=== PATIENT | female | born 1945 | race Caucasian/White ===

== ENCOUNTER → 2017-09-03 | Outpatient (CLI) | payer MEDICARE ==
--- NOTE | 2017-09-03 08:15 | CT ---
EXAMINATION TYPE: CT chest wo con DATE OF EXAM: 09/03/2017 COMPARISON: NONE HISTORY: Solitary Pulmonary Nodule CT DLP: 408.[address] of the chest was performed with lung and mediastinal window settings submitted. The la ck of contrast limits evaluation of the vascular, mediastinal and parenchymal structures including th e upper abdomen. LUNGS: Calcified nodule right upper lobe compatible with calcified granuloma. Noncalcified 4 mm nodul e left lower lobe image 43. No suspicious nodule or mass. Subpleural fibrotic change within the right middle lobe and portions of the right upper lobe. No evidence for pleural effusion. MEDIASTINUM/HITESH: Moderate fixed hiatal hernia. Thoracic aorta is of normal caliber with limited williams luation given lack of contrast. The heart is enlarged. No evidence for mediastinal mass. No lymph nodes greater than 1cm. UPPER ABDOMEN: No significant abnormality is seen. OTHER: No significant other abnormality. IMPRESSION: 1. Nonspecific the left lower lobe pulmonary nodule. Follow-up in 12 months is advised. 2. Remote granulomatous disease. 3. Mild scattered subpleural fibrosis.
== END | disposition home or self-care (01) ==
LOC: RADCTMAIN 07:13
PROVIDERS: ATTEND Internal Medicine Sleep Medicine
DX: J84.10 Pulmonary fibrosis, unspecified (principal); R91.1 Solitary pulmonary nodule; Z87.09 Personal history of other diseases of the respiratory system
CPT/HCPCS: 71250

== ENCOUNTER → 2019-12-08 | Outpatient (CLI) | payer MEDICARE ==
--- NOTE | 2019-12-08 08:21 | CT ---
EXAMINATION TYPE: CT chest wo con DATE OF EXAM: 12/08/2019 COMPARISON: Chest CT February 24, 2018 and older study September 03, 2017. HISTORY: Lung nodule CT DLP: 581 mGycm. Automated Exposure Control for Dose Reduction was Utilized. TECHNIQUE: CT scan of the thorax is performed without IV contrast. FINDINGS: LUNGS: There is minimal biapical scarring redemonstrated. There is calcified 6 mm nodule or granuloma anterior right upper lobe redemonstrated on axial image 17. There is persistent mild moderate focal reticulation and peripheral fibrosis involving anterior right upper and mid lobes most prominent near diaphragm axial image 38 on current study redemonstrated. There is some linear scarring medially in the left lower lobe redemonstrated. No new groundglass opacity or consolidation is seen. Mild underly ing emphysematous change redemonstrated. No pleural effusion or pneumothorax is noted. There are 2-3 nodules measuring 4 mm or smaller in size left lower lobe axial image 38, subpleural ax ial image 43, and axial image 46 redemonstrated not significantly changed in size or appearance from prior CT. Slightly more prominent 4-5 mm scarlike opacity right lower lobe axial image 34 from prior studies. No new greater than 4 mm nodules or masses. MEDIASTINUM: Lack of IV contrast is noted to limit evaluation for mediastinal and especially hilar ad enopathy. There are no definitive new greater than 1 cm noncalcified hilar or mediastinal lymph nodes . Stable calcified subcentimeter paracarinal and right hilar lymph nodes. No cardiomegaly or perica rdial effusion is seen. Stable moderate-sized fixed hiatal hernia containing malrotated stomach with suspected surgical clips located near the diaphragmatic hiatus. OTHER: Cholecystectomy clips are redemonstrated. Surgical clips from right sided lumpectomy axial oc ge 24 redemonstrated. [id number] multilevel spurring of thoracic spine again seen with slight s coliotic curvature. IMPRESSION: Fairly stable findings. There is 4 to 5 mm scarlike opacity or spiculated nodule right lo wer lobe slightly more prominent from prior studies. Advise repeat CT in one year time to reassess.
== END | disposition home or self-care (01) ==
LOC: RADCTMAIN 07:03
PROVIDERS: ATTEND Internal Medicine Pulmonary Disease
DX: R91.8 Other nonspecific abnormal finding of lung field (principal); G47.33 Obstructive sleep apnea (adult) (pediatric); E03.9 Hypothyroidism, unspecified; K21.9 Gastro-esophageal reflux disease without esophagitis; Z88.2 Allergy status to sulfonamides; Z88.5 Allergy status to narcotic agent; Z88.8 Allergy status to other drugs, medicaments and biological substances
CPT/HCPCS: 71250

== ENCOUNTER → 2020-11-12 | Outpatient (CLI) | payer MEDICARE ==
--- NOTE | 2020-11-12 21:36 | CT ---
EXAMINATION TYPE: CT chest wo con DATE OF EXAM: 11/12/2020 COMPARISON: 12/08/2019, 02/24/2018 HISTORY: follow up lung nodules CT DLP: 444.7 mGycm, Automated exposure control for dose reduction was used. CONTRAST: Performed injected with 0 mL of Isovue 300. TECHNIQUE: Axial images were obtained at 5 mm thick sections. Reconstructed images are reviewed on [employer] computer in the coronal plane. FINDINGS: Portion of the thyroid visualized is normal. There is a calcified granuloma within the anterior right lung. Series 3 image 20. There is a 0.3 cm nodule in the anterior left midlung. Series 4 image 29. These were present on the 2 018 exam. 3 tiny nodules are slightly more inferior within the left midlung. These were not identified on the 2 018 exam. There is some streak opacity within the right lung base. Series 4 image 41 No enlarged mediastinal or hilar adenopathy is evident. The ascending aorta diameter at the level o f the main pulmonary artery is 3.7 cm. The main pulmonary artery diameter at the bifurcation is 2.7 cm. There are size hiatal hernia is present. Limited CT sections are obtained through the upper abdomen. Abdomen is essentially unremarkable. IMPRESSIONS: 1. Stable tiny nodules in the anterior left lower lung field unchanged from recent comparison.. Follo w-up exam in one year is recommended. 2. Examination is otherwise stable from prior examinations.
== END | disposition home or self-care (01) ==
LOC: RADCTMAIN 09:16
PROVIDERS: ATTEND Internal Medicine Pulmonary Disease
DX: R91.8 Other nonspecific abnormal finding of lung field (principal)
CPT/HCPCS: 71250

== ENCOUNTER → 2022-10-22 | Outpatient (CLI) | payer MEDICARE ==
--- NOTE | 2022-10-22 17:25 | CT ---
EXAMINATION TYPE: CT chest wo con DATE OF EXAM: 10/22/2022 COMPARISON: 11/12/2020 HISTORY: ASTHMA CT DLP: 512 mGycm, Automated exposure control for dose reduction was used. CONTRAST: Performed injected with 0 mL of Isovue 300. TECHNIQUE: Axial images were obtained at 5 mm thick sections. Reconstructed images are reviewed on [email or web address] computer in the coronal plane. FINDINGS: Portion of the thyroid visualized is normal. Mild infiltrate is at the right lateral lung base. This is nonspecific. It appears somewhat improved from comparison. There is a posterior lateral right lung nodule measuring 0.4 cm. This appears increased from comparis on. Series 3 image 34 There is stable appearing calcification anterior right midlung measuring 0.5 cm. Series 3 image 16 No enlarged mediastinal or hilar adenopathy is evident. The ascending aorta diameter at the level o f the main pulmonary artery is 3.5 cm. The main pulmonary artery diameter at the bifurcation is 2.4 cm. Some coronary artery calcification is present Limited CT sections are obtained through the upper abdomen. There is a moderate-sized hiatal hernia p resent. IMPRESSIONS: 1. New 0.4 cm nodule posterior lateral right lung. Follow-up exam in 6 months is recommended. 2. Improving infiltrate anterolateral right lung base.
== END | disposition home or self-care (01) ==
LOC: RADCTMAIN 09:13
PROVIDERS: ATTEND Internal Medicine Pulmonary Disease
DX: J45.909 Unspecified asthma, uncomplicated (principal); K44.9 Diaphragmatic hernia without obstruction or gangrene; G47.33 Obstructive sleep apnea (adult) (pediatric); R91.8 Other nonspecific abnormal finding of lung field; R74.8 Abnormal levels of other serum enzymes
CPT/HCPCS: 71250

== ENCOUNTER 2023-02-27 20:14 | Observation (INO) | payer MEDICARE ==
[2023-02-27] MEDS ORDERED: MORPHINE SULFATE 4 MG/ML SYRINGE IVP STA (20:31)
[2023-02-27 21:12] LABS: Basophils % (A) 0 %; Eosinophils % (A) 0 %; HCT 41.3 % (34.0-46.0); Lymphocytes # (A) 0.9 k/uL (1.0-4.8); Lymphocytes % (A) 8 %; MCH 29.4 pg (25.0-35.0); MCHC 33.8 g/dL (31.0-37.0); MCV 87.2 fL (80.0-100.0); Mean Platelet Volume 10.6; Monocytes # (A) 0.9 k/uL (0-1.0); Monocytes % (A) 8 %; Neutrophils # (A) 9.4 k/uL (1.3-7.7); Neutrophils % (A) 82 %; Platelet Count 269 k/uL (150-450); RBC 4.74 m/uL (3.80-5.40); RDW 12.9 % (11.5-15.5); WBC 11.5 k/uL (3.8-10.6)
[2023-02-27 21:35] LABS: ALT 24 U/L (4-34); AST 34 U/L (14-36); African American GFR (CKD) >90 (>60 ml/min/1.73 sqM); Alkaline Phosphatase 61 U/L (38-126); Anion Gap 9 mmol/L; Blood Urea Nitrogen 13 mg/dL (7-17); Calcium 9.5 mg/dL (8.4-10.2); Carbon Dioxide 31 mmol/L (22-30); Chloride 94 mmol/L (98-107); Glucose 116 mg/dL (74-99); Non-African American GFR(CKD) 89 (>60 ml/min/1.73 sqM); Potassium 3.2 mmol/L (3.5-5.1); Sodium 134 mmol/L (137-145); Total Bilirubin 1.1 mg/dL (0.2-1.3); Total Protein 7.1 g/dL (6.3-8.2)
--- NOTE | 2023-02-27 22:06 | CT ---
EXAMINATION TYPE: CT abdomen pelvis w con DATE OF EXAM: 02/27/2023 COMPARISON: NONE HISTORY: 77-year-old female left side abdominal pain TECHNIQUE: Contiguous axial scanning of the abdomen and pelvis following administration of 100 ml Iso uri 300 IV contrast. Delayed images through the kidneys and coronal/sagittal reconstructions perform ed. CT DLP: 1293.2 mGycm Automated exposure control for dose reduction was used. FINDINGS: Heart borderline in size. No pericardial effusion. Strandy atelectasis or scarring at the l stephanie bases. No pleural effusion. There is some surgical material at the GE junction but a moderate sized hiatal hernia involving a thi rd of the stomach in the lower chest. Liver mildly enlarged at 18.9 cm with a mildly diminished attenuation. Nonspecific 6 mm hypodensity mid liver is too small for accurate CT characterization, probably a tiny cyst. No biliary ductal dilatation. Portal venous system is patent. Cholecystectomy clips. Adrenal glands, kidneys, spleen, and pancreas show no gross abnormality. No dilated bowel, free fluid, or free air. No mesenteric or retroperitoneal lymphadenopathy. Appendix not clearly identified. No secondary findings of acute appendicitis in the right lower quadr ant. There is moderate stool in the right side of the abdomen. Lower descending and proximal to mid sigmoi d colonic diverticulosis. No pericolic inflammatory change seen. Bladder ureters urine distended. Most of the pelvis is obscured by dense streak and beam finding ash fact related to the patient's bilateral total hip arthroplasties. No obvious fluid collection in the pelvis or pelvic lymphadenopathy. Unable to adequately assess for uterus or ovaries. Suspected to be surgically absent. Bones: Osteitis pubis. Leftward truncal shift with degenerative disc disease particularly towards the left L5-S1 and hypertrophic facet arthropathy. Degenerative grade 1 anterolisthesis L4-L5. Suspected moderate spinal canal stenosis L3-L4 and L4-L5. IMPRESSION: 1. LEFT-SIDED COLONIC DIVERTICULOSIS WITHOUT ACUTE DIVERTICULITIS. 2. MILD HEPATOMEGALY AT 18.9 CM WITH AT LEAST MILD HEPATIC STEATOSIS. 3. WE NOTE SOME SURGICAL MATERIAL AT THE GE JUNCTION. HOWEVER, THERE IS A MODERATE-SIZED HIATAL HERNI A INVOLVING A THIRD OF THE STOMACH IN THE LOWER CHEST. CORRELATE TO THE REASON FOR PRIOR SURGERY A ND FOR ANY ACTIVE SYMPTOMS.
[2023-02-27 22:23] LABS: Creatine Kinase 111 U/L (30-135)
[2023-02-28] MEDS ORDERED: SODIUM CHLORIDE 0.9% 1,000 ML IV ONE ×2 (00:22→02:56)
[2023-02-28] MEDS ORDERED: KETOROLAC 15 MG/ML 1 ML VIAL IVP STA (00:55)
[2023-02-28] MEDS: LIDOCAINE 5% PATCH TOPICAL SCH ×2 (02:09→10:26)
[2023-02-28 03:26] LABS: Appearance,Urine Clear (Clear); Bilirubin,Urine Negative (Negative); Blood,Urine Trace (Negative); Color,Urine Yellow; Glucose,Urine (UA) Negative (Negative); Ketones,Urine Negative (Negative); Leukocyte Esterase,Urine Negative (Negative); Mucus,Urine Rare /hpf; Nitrite,Urine Negative (Negative); PH, Urine 6.5 (5.0-8.0); Protein,Urine Negative (Negative); RBC,Urine 12 /hpf (0-5); Specific Gravity,Urine 1.044 (1.001-1.035); Urobilinogen,Urine <2.0 mg/dL (<2.0); WBC,Urine 1 /hpf (0-5)
[2023-02-28] MEDS ORDERED: HYDROmorphone 1 MG/ML 1 ML SYRINGE IVP PRN (03:42)
--- NOTE | 2023-02-28 03:58 | ED ---
Back Pain HPI - General Chief Complaint: Back Pain/Injury Stated Complaint: Back Pain Time Seen by Provider: 02/27/23 20:23 Source: patient, EMS Limitations: no limitations - History of Present Illness Initial Comments: 77-year-old female presenting with chief complaint of back pain. Patient states that she is having pain along the entire left side of her back. No injury or trauma. Patient states that the 2 worst areas of pain are in the low back and in the neck. No loss of bowel or bladder control or saddle paresthesia. No radiation of the pain down the arms or up the legs. Patient was unable to ambulate today and states that she was on the floor for a few hours prior to arrival. Patient lives alone. No chest pain, difficulty breathing, vision or hearing changes, nausea, vomiting, numbness, tingling, weakness. - Related Data Home Medications Medication Instructions Recorded Confirmed Cetirizine HCl [Zyrtec] 10 mg PO DAILY PRN 11/09/14 02/28/23 Fenofibrate Nanocrystallized 145 mg PO DAILY 11/09/14 02/28/23 [Tricor] Levothyroxine Sodium [Synthroid] 150 mcg PO DIRECTED 11/09/14 02/28/23 amLODIPine/ATORVASTATIN 1 tab PO DAILY 11/09/14 02/28/23 [Amlodipine-Atorvast 5-10 mg] Gabapentin [Neurontin] 300 mg PO HS PRN 02/28/23 02/28/23 Lactulose 20 gm PO DAILY PRN 02/28/23 02/28/23 Lansoprazole 30 mg PO DAILY 02/28/23 02/28/23 Metoprolol/Hydrochlorothiazide 1 tab PO DAILY 02/28/23 02/28/23 [Lopressor Hct 50-25 mg Tab] Allergies Allergy/AdvReac Type Severity Reaction Status Date / Time codeine Allergy Swelling Verified 02/28/23 12:22 glycopyrrolate [From Robinul] Allergy Dyspnea Verified 02/28/23 12:22 metoclopramide HCl Allergy Dyspnea Verified 02/28/23 12:22 [From Reglan] pentazocine lactate Allergy Hallucinati Verified 02/28/23 12:22 [From Talwin] ons propoxyphene napsylate Allergy Swelling Verified 02/28/23 12:22 [From Darvocet-N 100] Sulfa (Sulfonamide Allergy Swelling Verified 02/28/23 12:22 Antibiotics) Review of Systems ROS Statement: Those systems with pertinent positive or pertinent negative responses have been documented in the HPI. ROS Other: All systems not noted in ROS Statement are negative. Past Medical History Past Medical History: GERD/Reflux, Hypertension, Sleep Apnea/CPAP/BIPAP Additional Past Medical History / Comment(s): USES CPA P,DIVERTICULOSIS/DIVERTICULITIS History of Any Multi-Drug Resistant Organisms: None Reported Past Surgical History: Appendectomy, Cholecystectomy, Hysterectomy, Joint Replacement Additional Past Surgical History / Comment(s): BSO, LUMP REMOVED FROM BREAST X2, RT KNEE REPLACEMTN,RT HIP REPLACEMENT Additional Past Anesthesia/Blood Transfusion Reaction / Comment(s): ALG REGLAN AND ROBINOL Past Psychological History: No Psychological Hx Reported Smoking Status: Never smoker Past Alcohol Use History: None Reported Past Drug Use History: None Reported - Past Family History Father Family Medical History: Congestive Heart Failure (CHF) Mother History Unknown: Yes Sister(s) Family Medical History: Cancer Additional Family Medical History / Comment(s): BREAST General Exam Limitations: no limitations General appearance: alert, in no apparent distress Head exam: Present: atraumatic, normocephalic, normal inspection Eye exam: Present: normal appearance, EOMI. Absent: periorbital swelling Neck exam: Present: normal inspection, tenderness, full ROM Respiratory exam: Present: normal lung sounds bilaterally. Absent: respiratory distress, wheezes, rales, rhonchi, stridor Cardiovascular Exam: Present: regular rate, normal rhythm, normal heart sounds. Absent: systolic murmur, diastolic murmur, rubs, gallop, clicks GI/Abdominal exam: Present: soft. Absent: distended, tenderness, guarding, rebound, rigid Back exam: Present: normal inspection Neurological exam: Present: alert, oriented X3 Psychiatric exam: Present: normal affect, normal mood Skin exam: Present: warm, dry, intact, normal color. Absent: rash Course Vital Signs 02/27/23 02/27/23 02/28/23 20:14 23:00 03:30 Temperature 99.0 F Pulse Rate 100 101 H 89 Respiratory 18 20 18 Rate Blood Pressure 140/93 154/70 119/59 O2 Sat by Pulse 97 95 93 L Oximetry Medical Decision Making - Medical Decision Making Was pt. sent in by a medical professional or institution (, PA, MAGNETIC LOCATER, urgent care, hospital, or senior living...) When possible be specific @ -No Did you speak to anyone other than the patient for history (EMS, parent, family, police, friend...)? What history was obtained from this source @ -No Did you review nursing and triage notes (agree or disagree)? Why? @ -I reviewed and agree with nursing and triage notes Were old charts reviewed (outside hosp., previous admission, EMS record, old EKG, old radiological studies, urgent care reports/EKG's, senior living records)? Report findings @ -No old charts were reviewed Differential Diagnosis (chest pain, altered mental status, abdominal pain women, abdominal pain men, vaginal bleeding, weakness, fever, dyspnea, syncope, headache, dizziness, GI bleed, back pain, seizure, CVA, palpatations, mental health, musculoskeletal)? @ - MDM Differential Back Pain: Strain, zoster, cauda equina syndrome, epidural abscess, vertebral osteomyelitis, discitis, fracture, subluxation, disc herniation, DJD, spinal stenosis, dissection, AAA, pancreatitis, peptic ulcer disease, pyelonephritis, kidney stone this is not meant to be an all-inclusive list. EKG interpreted by me (3pts min.). @ -As above X-rays interpreted by me (1pt min.). @ -None done CT interpreted by me (1pt min.). @ -No acute cervical spine fractures. Moderate degenerative disc disease and facet arthropathy throughout the cervical spine as described above. No significant spinal canal narrowing. Multilevel bilateral osseous foraminal narrowing most prominent at C6 through C7 Left sided colonic diverticulosis without acute diverticulitis. Mild hepatomegaly at 18.9 cm with at least mild hepatic steatosis. We note some surgical material at the GE junction. However there is a moderate sized hiatal hernia involving a third of the stomach in the lower chest. Isa as to the reason for prior surgery and for any active symptoms U/S interpreted by me (1pt. min.). @ -None done What testing was considered but not performed or refused? (CT, X-rays, U/S, labs)? Why? @ -None What meds were considered but not given or refused? Why? @ -None Did you discuss the management of the patient with other professionals (professionals i.e. , PA, MAGNETIC LOCATER, lab, RT, psych nurse, social worker health services, loss control manager, teacher, communications officer, manager case management)? Give summary @ -My attending spoke with the on-call [facility] provider who accepted admission Was smoking cessation discussed for >3mins.? @ -No Was critical care preformed (if so, how long)? @ -No Were there social determinants of health that impacted care today? How? (Homelessness, low income, unemployed, alcoholism, drug addiction, transportation, low edu. Level, literacy, decrease access to med. care, half-way, rehab)? @ -No Was there de-escalation of care discussed even if they declined (Discuss DNR or withdrawal of care, Hospice)? DNR status @ -No What co-morbidities impacted this encounter? (DM, HTN, Smoking, COPD, CAD, Cancer, CVA, ARF, Chemo, Hep., AIDS, mental health diagnosis, sleep apnea, morbid obesity)? @ -None Was patient admitted / discharged? Hospital course, mention meds given and route, prescriptions, significant lab abnormalities, going to OR and other pertinent info. @ -77-year-old female presenting with chief complaint of lower back and neck pain. Patient states the pain was so bad today that she was unable to ambulate and was lying on the floor for several hours before EMS came. Patient lives alone. History and physical exam were conducted. Negative CT of the abdomen and pelvis. Cervical spine CT shows no acute fracture or canal stenosis. After multiple methods of analgesia patient is still complaining of pain and states that she cannot function at her baseline. Given that the patient lives alone and concern for her safety if she is discharged. She'll be admitted for intrac table neck and lower back pain. Patient is agreeable with this plan. I discussed this case with my attending Dr. Fernandez Undiagnosed new problem with uncertain prognosis? @ -No Drug Therapy requiring intensive monitoring for toxicity (Heparin, Nitro, Insulin, Cardizem)? @ -No Were any procedures done? @ -No Diagnosis/symptom? @ -Intractable neck and back pain Acute, or Chronic, or Acute on Chronic? @ -Acute Uncomplicated (without systemic symptoms) or Complicated (systemic symptoms)? @ -Complicated Side effects of treatment? @ -No Exacerbation, Progression, or Severe Exacerbation? @ -No Poses a threat to life or bodily function? How? (Chest pain, USA, DC, pneumonia, PE, COPD, DKA, ARF, appy, cholecystitis, CVA, Diverticulitis, Homicidal, Suicidal, threat to staff... and all critical care pts) @ -No - Lab Data Result diagrams: 02/27/23 20:59 02/27/23 20:59 Lab Results 02/27/23 02/27/23 02/27/23 Range/Units 20:59 20:59 20:59 WBC 11.5 H (3.8-10.6) k/uL RBC 4.74 (3.80-5.40) m/uL Hgb 14.0 (11.4-16.0) gm/dL Hct 41.3 (34.0-46.0) % MCV 87.2 (80.0-100.0) fL MCH 29.4 (25.0-35.0) pg MCHC 33.8 (31.0-37.0) g/dL RDW 12.9 (11.5-15.5) % Plt Count 269 (150-450) k/uL MPV 10.6 Neutrophils % 82 % Lymphocytes % 8 % Monocytes % 8 % Eosinophils % 0 % Basophils % 0 % Neutrophils # 9.4 H (1.3-7.7) k/uL Lymphocytes # 0.9 L (1.0-4.8) k/uL Monocytes # 0.9 (0-1.0) k/uL Eosinophils # 0.0 (0-0.7) k/uL Basophils # 0.0 (0-0.2) k/uL Sodium 134 L (137-145) mmol/L Potassium 3.2 L (3.5-5.1) mmol/L Chloride 94 L (98-107) mmol/L Carbon Dioxide 31 H (22-30) mmol/L Anion Gap 9 mmol/L BUN 13 (7-17) mg/dL Creatinine 0.56 (0.52-1.04) mg/dL Est GFR (CKD-EPI)AfAm >90 (>60 ml/min/1.73 sqM) Est GFR (CKD-EPI)NonAf 89 (>60 ml/min/1.73 sqM) Glucose 116 H (74-99) mg/dL Plasma Lactic Acid Osvaldo 1.4 (0.7-2.0) mmol/L Calcium 9.5 (8.4-10.2) mg/dL Total Bilirubin 1.1 (0.2-1.3) mg/dL AST 34 (14-36) U/L ALT 24 (4-34) U/L Alkaline Phosphatase 61 (38-126) U/L Creatine Kinase 111 (30-135) U/L Total Protein 7.1 (6.3-8.2) g/dL Albumin 4.0 (3.5-5.0) g/dL Urine Color Urine Appearance (Clear) Urine pH (5.0-8.0) Ur Specific Crescent (1.001-1.035) Urine Protein (Negative) Urine Glucose (UA) (Negative) Urine Ketones (Negative) Urine Blood (Negative) Urine Nitrite (Negative) Urine Bilirubin (Negative) Urine Urobilinogen (<2.0) mg/dL Ur Leukocyte Esterase (Negative) Urine RBC (0-5) /hpf Urine WBC (0-5) /hpf Urine Mucus (None) /hpf 02/28/23 Range/Units 02:40 WBC (3.8-10.6) k/uL RBC (3.80-5.40) m/uL Hgb (11.4-16.0) gm/dL Hct (34.0-46.0) % MCV (80.0-100.0) fL MCH (25.0-35.0) pg MCHC (31.0-37.0) g/dL RDW (11.5-15.5) % Plt Count (150-450) k/uL MPV Neutrophils % % Lymphocytes % % Monocytes % % Eosinophils % % Basophils % % Neutrophils # (1.3-7.7) k/uL Lymphocytes # (1.0-4.8) k/uL Monocytes # (0-1.0) k/uL Eosinophils # (0-0.7) k/uL Basophils # (0-0.2) k/uL Sodium (137-145) mmol/L Potassium (3.5-5.1) mmol/L Chloride (98-107) mmol/L Carbon Dioxide (22-30) mmol/L Anion Gap mmol/L BUN (7-17) mg/dL Creatinine (0.52-1.04) mg/dL Est GFR (CKD-EPI)AfAm (>60 ml/min/1.73 sqM) Est GFR (CKD-EPI)NonAf (>60 ml/min/1.73 sqM) Glucose (74-99) mg/dL Plasma Lactic Acid Osvaldo (0.7-2.0) mmol/L Calcium (8.4-10.2) mg/dL Total Bilirubin (0.2-1.3) mg/dL AST (14-36) U/L ALT (4-34) U/L Alkaline Phosphatase (38-126) U/L Creatine Kinase (30-135) U/L Total Protein (6.3-8.2) g/dL Albumin (3.5-5.0) g/dL Urine Color Yellow Urine Appearance Clear (Clear) Urine pH 6.5 (5.0-8.0) Ur Specific Crescent 1.044 H (1.001-1.035) Urine Protein Negative (Negative) Urine Glucose (UA) Negative (Negative) Urine Ketones Negative (Negative) Urine Blood Trace H (Negative) Urine Nitrite Negative (Negative) Urine Bilirubin Negative (Negative) Urine Urobilinogen <2.0 (<2.0) mg/dL Ur Leukocyte Esterase Negative (Negative) Urine RBC 12 H (0-5) /hpf Urine WBC 1 (0-5) /hpf Urine Mucus Rare H (None) /hpf Disposition Clinical Impression: Neck pain Disposition: ADMITTED IP TO THIS HOSP Condition: Good Time of Disposition: 04:25
[2023-02-28] MEDS ORDERED: HYDROcodone/APAP 5-325MG 1 EACH TAB PO PRN (04:23)
[2023-02-28] MEDS ORDERED: NALOXONE 0.4 MG/ML 1 ML VIAL IV PRN (04:23)
[2023-02-28] MEDS ORDERED: ACETAMINOPHEN TAB 325 MG TAB PO PRN (04:23)
[2023-02-28] MEDS ORDERED: MORPHINE SULFATE 4 MG/ML SYRINGE IVP PRN (04:44)
[2023-02-28] MEDS: SODIUM CHLORIDE 0.9% 1,000 ML IV SCH ×2 (04:46→18:03)
--- NOTE | 2023-02-28 06:24 | CT ---
EXAM: CT Cervical Spine Without Intravenous Contrast CLINICAL HISTORY: ITS.REASON CT Reason: neck pain TECHNIQUE: Axial computed tomography images of the cervical spine without intravenous contrast. CTDI is 16.3 mGy and DLP is 411.1 mGy-cm. This CT exam was performed using one or more of the following dose reduction techniques: automated exposure control, adjustment of the mA and/or kV according to patient size, and/or use of iterative reconstruction technique. COMPARISON: No relevant prior studies available. FINDINGS: Vertebrae: Straightening of cervical lordosis which may be positional. Minimal anterolisthesis of C4 on C5 and C5 on C6 with grade 1 anterolisthesis of C7 on T1. No acute fracture. Advanced facet arthropathy throughout the upper cervical spine from C3-C4 through C5-C6 on the left. Discs/spinal canal/neural foramina: No acute findings. No spinal canal stenosis. Moderate disc space narrowing, endplate sclerosis, and disc osteophyte complexes throughout the lower cervical spine most prominent at C5-C6. No significant spinal canal narrowing. Multilevel bilateral osseous foraminal narrowing most prominent at C6-7. Soft tissues: Unremarkable. IMPRESSION: 1. No acute cervical spine fractures. 2. Moderate degenerative disc disease and facet arthropathy throughout the cervical spine as described above. No significant spinal canal narrowing. Multilevel bilateral osseous foraminal narrowing most prominent at C6-C7.
[2023-02-28] MEDS ORDERED: KETOROLAC 15 MG/ML 1 ML VIAL IVP PRN (09:41)
[2023-02-28] MEDS ORDERED: ONDANSETRON 4 MG/2 ML VIAL IVP PRN (09:41)
[2023-02-28] MEDS: POTASSIUM CHLORIDE 10 MEQ in WATER FOR INJECTION 1 100ML.BAG IVPB SCH ×2 (10:22→12:50)
[2023-02-28] MEDS: traMADol 50 MG TAB PO PRN ×2 (10:32→18:02)
--- NOTE | 2023-02-28 11:59 | P.CNOR ---
History of Present Illness - [facility] Consult date: 02/28/23 Consult reason: neck pain History of present illness: Patient is a 77-year-old female who presented to [facility] yesterday with regards to low back pain and neck pain. Patient states that she woke up with the pain and had a very difficult time with ambulation, due to severe pain should come to the hospital for further evaluation. Patient was admitted to the hospital under internal medicine due to intractable pain. Our orthopedic team was consulted. Patient had undergone a computed tomography scan of the cervical spine in the emergency room, there are no acute fractures or dislocations noted. At bedside today, she is resting comfortably. She's feels that the pain is a little bit better today, she still notes most the pain on the left side of her back ranges up into her neck. She denies any radiating pain to the extremities both bilateral upper and lower at this time. She denies any recent trauma. She does have a history of previous lumbar fusion was done many years ago at a different hospital. Currently patient denies any numbness or tingling or obvious weakness to the masha ateral upper and lower extremities. She does have a history of right total knee arthroplasty which states has been giving her problems lately. She denies any fevers or chills at this time. She denies being sick recently. She denies any numbness or tingling to the peroneal or genital region. She denies any loss of bowel or bladder function at this time. Patient normally utilizes no assist dev ices with ambulation. Review of Systems Constitutional: Reports as per HPI Past Medical History Past Medical History: GERD/Reflux, Hypertension, Sleep Apnea/CPAP/BIPAP Additional Past Medical History / Comment(s): USES CPAP,DIVERTICULOSIS/DIVERTICULITIS History of Any Multi-Drug Resistant Organisms: None Reported Past Surgical History: Appendectomy, Cholecystectomy, Hysterectomy, Joint Replacement Additional Past Surgical History / Comment(s): BSO, LUMP REMOVED FROM BREAST X2, RT KNEE REPLACEMTN,bilteral HIP REPLACEMENT, ankle surgery, Additional Past Anesthesia/Blood Transfusion Reaction / Comm: JAMES HDZ AND CHRISTOPHER Past Psychological History: No Psychological Hx Reported Smoking Status: Never smoker Past Alcohol Use History: None Reported Past Drug Use History: None Reported - Past Family History Father Family Medical History: Congestive Heart Failure (CHF) Mother History Unknown: Yes Sister(s) Family Medical History: Cancer Additional Family Medical History / Comment(s): BREAST Medications and Allergies Home Medications Medication Instructions Recorded Confirmed Type Biotin 10 mg PO DAILY 11/09/14 11/15/14 History Cetirizine HCl [Zyrtec] 10 mg PO DAILY PRN 11/09/14 11/15/14 History Cholecalciferol [Vitamin D3] 5,000 units PO DAILY 11/09/14 11/15/14 History Fenofibrate Nanocrystallized 145 mg PO DAILY 11/09/14 11/15/14 History [Tricor] Lansoprazole [Prevacid] 15 mg PO DAILY 11/09/14 11/15/14 History Levothyroxine Sodium [Synthroid] 150 mcg PO QAM 11/09/14 11/15/14 History Magnesium 400 mg PO DAILY 11/09/14 11/15/14 History Metoprolol Tartrate 12.5 mg PO BID 11/09/14 11/15/14 History Multivit-Min/FA/Lycopene/Lut 1 each PO DAILY 11/09/14 11/15/14 History [Centrum Silver Tablet] Ubidecarenone [Co Q-10] 400 mg PO DAILY 11/09/14 11/15/14 History Vitamin B Complex 1 each PO DAILY 11/09/14 11/15/14 History amLODIPine/ATORVASTATIN 1 each PO DAILY 11/09/14 11/15/14 History [Amlodipine-Atorvast 5-10 mg] Allergies Allergy/AdvReac Type Severity Reaction Status Date / Time acetaminophen Allergy Swelling Verified 02/27/23 20:19 [From Darvocet-N 100] codeine Allergy Swelling Verified 02/27/23 20:19 glycopyrrolate [From Robinul] Allergy Dyspnea Verified 02/27/23 20:19 metoclopramide HCl Allergy Dyspnea Verified 02/27/23 20:19 [From Reglan] pentazocine lactate Allergy Hallucinati Verified 02/27/23 20:19 [From Talwin] ons propoxyphene napsylate Allergy Swelling Verified 02/27/23 20:19 [From Darvocet-N 100] Sulfa (Sulfonamide Allergy Swelling Verified 02/27/23 20:19 Antibiotics) Physical Examination Gen: AOx3, NAD VSS stable at this time Integument: No open lesions are visualized throughout the cervical, thoracic or lumbar spine. Well-healed incision over the anterior aspect of the right knee Palpation: Mild tenderness with palpation noted in the paraspinal region of the cervical and upper thoracic spine. No point tenderness appreciated with palpation to the bilateral upper and lower extremities ROM: Full range of motion in all major muscle groups of the bilateral upper and lower extremity is, no focal deficits appreciated Sensory Exam: Senory exam to light touch is intact C5-T1 Senosry exam to light touch is intact L2-S1 Motor: 5/5 strength appreciated in bilateral upper extremities with shoulder elevation, shoulder abduction, wrist extension, wrist flexion, elbow extension, elbow flexion, mounter brass wind instruments 5/5 strength appreciated in the bilateral lower extremities with hip flexion, knee extension, knee flexion, plantar flexion, dorsiflexion, EHL, FHL Reflexes: 2/4 in all UE and LE Negative Stefanie's bilaterally Negative Babinski bilateral Negative clonus bilaterally Special Test: Negative straight leg raise bilaterally Results - Labs Labs: Abnormal Lab Results - Last 24 Hours (Table) 02/27/23 02/27/23 02/28/23 Range/Units 20:59 20:59 02:40 WBC 11.5 H (3.8-10.6) k/uL Neutrophils # 9.4 H (1.3-7.7) k/uL Lymphocytes # 0.9 L (1.0-4.8) k/uL Sodium 134 L (137-145) mmol/L Potassium 3.2 L (3.5-5.1) mmol/L Chloride 94 L (98-107) mmol/L Carbon Dioxide 31 H (22-30) mmol/L Glucose 116 H (74-99) mg/dL Ur Specific [place] 1.044 H (1.001-1.035) Urine Blood Trace H (Negative) Urine RBC 12 H (0-5) /hpf Urine Mucus Rare H (None) /hpf H & H 02/27/23 Range/Units 20:59 Hgb 14.0 (11.4-16.0) gm/dL Hct 41.3 (34.0-46.0) % Result Diagrams: 02/27/23 20:59 02/27/23 20:59 - Diagnostic results CT scan - cervical: report reviewed, image reviewed (Images and reports reviewed with Dr. Ruiz. Patient has no acute fractures or dislocations. Multilevel cervical spondylosis with likely varying degrees of neural foraminal and central canal stenosis.) Assessment and Plan Assessment: Neck pain Low-back pain Multilevel cervical spondylosis with varying degrees of neural foraminal and c entral canal stenosis Previous lumbar fusion Other medical comorbidities Plan: I was able to discuss the case, this including both physical exam findings and imaging studies my attending Dr. Ruiz. No emergent orthopedic surgical intervention is recommended at this time Would recommend initial conservative measures, this including use of Tylenol, NSAIDs, possible low-dose muscle relaxer. Pending how she reacts to initial conservative measures, could consider MRI of the cervical spine if symptoms don't improve PT/OT, weight-bear as tolerated DVT prophylaxis per primary medical service Encourage patient to be out of bed for all meals Other medical staff assistant recommendations appreciated We will continue to follow patient during hospital stay Time with Patient: Less than 30
[2023-02-28] MEDS: methocarbamoL 500 MG TAB PO SCH ×4 (12:50→20:55)
--- NOTE | 2023-02-28 12:52 | P.HPIM ---
History of Present Illness H&P Date: 02/28/23 Chief Complaint: Back pain * 77-year-old lady with past medical history significant for hypertension, hyperlipidemia, gastric physical reflux disease presented to the emergency department with complains of back pain patient states her symptom onset was early in the day when she started having low back pain, patient states she was unable to ambulate secondary to pain/patient denies losing loss of bladder or bowel control/denies radiation of pain down the legs or radiation down the arms * Patient denies associated symptoms of fever, chills, chest pain, shortness of breath nausea vomiting tingling or numbness. * Workup initiated in ER including CT abdomen and pelvis which showed colon diverticulosis without diverticulitis/hepatomegaly noted/bone windows showed degenerative disease of lumbar spine moderate spinal canal stenosis * CT cervical spine obtained was consistent with degenerative disease of cervical spine no acute cervical spine fracture noted * Blood work obtained in ER included CBC showed WBC 11.5 hemoglobin 14 platelet 269 * Serum chemistry showed sodium 134 potassium 3.2 BU and 13 creatinine 0.56 * Urinalysis showed minimal WBC, nitrite and leukocyte esterase negative * While in ER patient was given 2 L of fluid bolus, IV Toradol and IV morphine and admitted for further management REVIEW OF SYSTEMS: Back pain, bilateral lower extremity weakness CONSTITUTIONAL: No fever, no malaise, no fatigue. HEENT: No recent visual problems or hearing problems. Denied any sore throat. CARDIOVASCULAR: No chest pain, orthopnea, PND, no palpitations, no syncope. PULMONARY: No shortness of breath, no cough, no hemoptysis. GASTROINTESTINAL: No diarrhea, no nausea, no vomiting, no abdominal pain. NEUROLOGICAL: No headaches, no weakness, no numbness. HEMATOLOGICAL: Denies any bleeding or petechiae. GENITOURINARY: Denies any burning micturition, frequency, or urgency. MUSCULOSKELETAL/RHEUMATOLOGICAL: Denies any joint pain, swelling, or any muscle pain. ENDOCRINE: Denies any polyuria or polydipsia. PHYSICAL EXAMINATION: GENERAL: The patient is alert and oriented x 3, not in any acute distress. Well developed, well nourished. HEENT: Pupils are round and equally reacting to light. EOMI. PULMONARY: Chest is clear to auscultation, no wheezing or crackles. ABDOMEN: Soft, nontender, nondistended, normoactive bowel sounds. No palpable organomegaly. MUSCULOSKELETAL: No joint swelling or deformity. EXTREMITIES: No cyanosis, clubbing, or pedal edema. NEUROLOGICAL: Gross neurological examination did not reveal any focal deficits. Generalized global weakness Past Medical History Past Medical History: GERD/Reflux, Hypertension, Sleep Apnea/CPAP/BIPAP Additional Past Medical History / Comment(s): USES C PAP,DIVERTICULOSIS/DIVERTICULITIS History of Any Multi-Drug Resistant Organisms: None Reported Past Surgical History: Appendectomy, Cholecystectomy, Hysterectomy, Joint Replacement Additional Past Surgical History / Comment(s): BSO, LUMP REMOVED FROM BREAST X2, RT KNEE REPLACEMTN,bilteral HIP REPLACEMENT, ankle surgery, Additional Past Anesthesia/Blood Transfusion Reaction / Comment(s): ALG REGLAN AND ROBINOL Past Psychological History: No Psychological Hx Reported Smoking Status: Never smoker Past Alcohol Use History: None Reported Past Drug Use History: None Reported - Past Family History Father Family Medical History: Congestive Heart Failure (CHF) Mother History Unknown: Yes Sister(s) Family Medical History: Cancer Additional Family Medical History / Comment(s): BREAST Medications and Allergies Home Medications Medication Instructions Recorded Confirmed Type Cetirizine HCl [Zyrtec] 10 mg PO DAILY PRN 11/09/14 02/28/23 History Fenofibrate Nanocrystallized 145 mg PO DAILY 11/09/14 02/28/23 History [Tricor] Levothyroxine Sodium [Synthroid] 150 mcg PO DIRECTED 11/09/14 02/28/23 History amLODIPine/ATORVASTATIN 1 tab PO DAILY 11/09/14 02/28/23 History [Amlodipine-Atorvast 5-10 mg] Gabapentin [Neurontin] 300 mg PO HS PRN 02/28/23 02/28/23 History Lactulose 20 gm PO DAILY PRN 02/28/23 02/28/23 History Lansoprazole 30 mg PO DAILY 02/28/23 02/28/23 History Metoprolol/Hydrochlorothiazide 1 tab PO DAILY 02/28/23 02/28/23 History [Lopressor Hct 50-25 mg Tab] Allergies Allergy/AdvReac Type Severity Reaction Status Date / Time codeine Allergy Swelling Verified 02/28/23 12:22 glycopyrrolate [From Robinul] Allergy Dyspnea Verified 02/28/23 12:22 metoclopramide HCl Allergy Dyspnea Verified 02/28/23 12:22 [From Reglan] pentazocine lactate Allergy Hallucinati Verified 02/28/23 12:22 [From Talwin] ons propoxyphene napsylate Allergy Swelling Verified 02/28/23 12:22 [From Darvocet-N 100] Sulfa (Sulfonamide Allergy Swelling Verified 02/28/23 12:22 Antibiotics) Physical Exam Vitals: Vital Signs Temp Pulse Pulse Resp BP BP Pulse Ox 02/28/23 08:00 15 02/28/23 06:08 97.9 F 80 15 171/72 94 L 02/28/23 03:30 89 18 119/59 93 L 02/27/23 23:00 101 H 20 154/70 95 02/27/23 20:14 99.0 F 100 18 140/93 97 Intake and Output 02/27/23 02/28/23 02/28/23 22:59 06:59 14:59 Output Total 760 Balance -760 Output: Urine 760 Straight 760 Other: Weight 90.718 kg 90.718 kg Results CBC & Chem 7: 02/27/23 20:59 02/27/23 20:59 Labs: Abnormal Lab Results - Last 24 Hours (Table) 02/27/23 02/27/23 02/28/23 Range/Units 20:59 20:59 02:40 WBC 11.5 H (3.8-10.6) k/uL Neutrophils # 9.4 H (1.3-7.7) k/uL Lymphocytes # 0.9 L (1.0-4.8) k/uL Sodium 134 L (137-145) mmol/L Potassium 3.2 L (3.5-5.1) mmol/L Chloride 94 L (98-107) mmol/L Carbon Dioxide 31 H (22-30) mmol/L Glucose 116 H (74-99) mg/dL Ur Specific [place] 1.044 H (1.001-1.035) Urine Blood Trace H (Negative) Urine RBC 12 H (0-5) /hpf Urine Mucus Rare H (None) /hpf Assessment and Plan Assessment: Assessment and plan 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
[2023-03-01] MEDS: traMADol 50 MG TAB PO PRN ×2 (00:31→08:17)
[2023-03-01] MEDS: SODIUM CHLORIDE 0.9% 1,000 ML IV SCH ×2 (06:15→18:11)
[2023-03-01] MEDS: ENOXAPARIN 40 MG/0.4 ML SYRINGE SQ SCH (08:17)
[2023-03-01] MEDS: methocarbamoL 500 MG TAB PO SCH ×4 (08:17→21:38)
[2023-03-01 08:42] LABS: Basophils # (A) 0.04 X 10*3/uL (0.00-0.10); Basophils % (A) 0.5 %; Eosinophils # (A) 0.18 X 10*3/uL (0.04-0.35); Eosinophils % (A) 2.5 %; HCT 35.9 % (37.2-46.3); HGB 11.7 g/dL (12.0-15.0); Lymphocytes # (A) 1.16 X 10*3/uL (0.90-5.00); Lymphocytes % (A) 15.8 %; MCH 28.7 pg (27.0-32.0); MCHC 32.6 g/dL (32.0-37.0); Mean Platelet Volume 12.3 FL (9.5-12.2); Monocytes # (A) 0.88 X 10*3/uL (0.20-1.00); NRBC Per 100 WBC 0 X 10*3/uL (0.00-0.01); Neutrophils # (A) 5.03 X 10*3/uL (1.80-7.70); Neutrophils % (A) 68.8 %; Platelet Count 256 X 10*3/uL (140-440); RBC 4.08 X 10*6/uL (4.10-5.20); RDW 12.7 % (11.5-14.5); WBC 7.32 X 10*3/uL (4.50-10.00)
[2023-03-01 08:54] LABS: Blood Urea Nitrogen 10.8 mg/dL (9.0-27.0); Calcium 8.9 mg/dL (8.7-10.3); Carbon Dioxide 27.4 mmol/L (21.6-31.8); Chloride 98 mmol/L (96-109); Glucose 99 mg/dL (70-110); Potassium 3.6 mmol/L (3.5-5.5); Sodium 134 mmol/L (135-145)
--- NOTE | 2023-03-01 10:27 | P.PN ---
Subjective Progress Note Date: 03/01/23 Principal diagnosis: Low back pain, neck pain Patient was examined today at bedside, she was resting in her hospital bed. Patient states that the pain does seem a little bit better today. She has tramadol and Robaxin. Patient was assisted to the side of the bed, she did this with very minimal difficulty. She does note some paraspinal tenderness cervical region, she also notes more left-sided flank pain. She continues to demonstrate no acute neuropathic signs. She denies headaches, lightheadedness, chest pain or shortness of breath Objective - Vital Signs Vital signs: Vital Signs Temp 98.3 F 03/01/23 07:00 Pulse 65 03/01/23 07:00 Resp 15 03/01/23 07:00 BP 126/65 03/01/23 07:00 Pulse Ox 99 03/01/23 07:00 FiO2 Intake & Output 02/28/23 03/01/23 03/01/23 18:59 06:59 18:59 Intake Total 564 Output Total 300 Balance 264 Intake: Oral 564 Output: Urine 300 Other: Voiding Method Toilet Toilet # Voids 150 5 - Exam Gen: AOx3, NAD VSS stable at this time Integument: No open lesions are visualized throughout the cervical, thoracic or lumbar spine. Well-healed incision over the anterior aspect of the right knee Palpation: Mild tenderness with palpation noted in the paraspinal region of the cervical and upper thoracic spine. No point tenderness appreciated with palpation to the bilateral upper and lower extremities ROM: Full range of motion in all major muscle groups of the bilateral upper and lower extremity is, no focal deficits appreciated Sensory Exam: Senory exam to light touch is intact C5-T1 Senosry exam to light touch is intact L2-S1 Motor: 5/5 strength appreciated in bilateral upper extremities with shoulder elevation, shoulder abduction, wrist extension, wrist flexion, elbow extension, elbow flexion, volunteer recruitment coordinator 5/5 strength appreciated in the bilateral lower extremities with hip flexion, knee extension, knee flexion, plantar flexion, dorsiflexion, EHL, FHL Reflexes: 2/4 in all UE and LE Negative Stefanie's bilaterally Negative Babinski bilateral Negative clonus bilaterally Special Test: Negative straight leg raise bilaterally - Labs CBC & Chem 7: 03/01/23 06:00 03/01/23 06:00 Labs: Abnormal Lab Results - Last 24 Hours (Table) 02/28/23 03/01/23 03/01/23 Range/Units 11:30 06:00 06:00 RBC 4.08 L (4.10-5.20) X 10*6/uL Hgb 11.7 L (12.0-15.0) g/dL Hct 35.9 L (37.2-46.3) % MPV 12.3 H (9.5-12.2) FL Sodium 134 L (135-145) mmol/L Creatine Kinase 261 H (30-135) U/L Assessment and Plan Assessment: Neck pain Low-back pain Multilevel cervical spondylosis with varying degrees of neural foraminal and central canal stenosis Previous lumbar fusion Other medical comorbidities Plan: Patient seems to be improving with current medical regimen of tramadol and mu scle relaxer. Recommend continuing conservative measures at this time PT/OT, weight-bear as tolerated DVT prophylaxis per primary medical service Encourage patient to be out of bed for all meals Other director medical writing recommendations appreciated Orthopedically patient remained stable, would recommend follow-up in the outpatient setting with Dr. Ruiz in the near future. Follow-up in formation will be placed in chart. Please contact our orthopedic service there are any further questions Time with Patient: Less than 30
[2023-03-01] MEDS ORDERED: DOCUSATE 100 MG CAP PO PRN (10:29)
[2023-03-01] MEDS ORDERED: LORATADINE 10 MG TAB PO PRN (13:19)
[2023-03-01] MEDS ORDERED: GABAPENTIN 300 MG CAP PO PRN (13:19)
--- NOTE | 2023-03-01 13:20 | P.PN ---
Subjective Progress Note Date: 03/01/23 * 77-year-old lady with past medical history significant for hypertension, hyperlipidemia, gastric physical reflux disease presented to the emergency department with complains of back pain patient states her symptom onset was early in the day when she started having low back pain, patient states she was unable to ambulate secondary to pain/patient denies losing loss of bladder or bowel control/denies radiation of pain down the legs or radiation down the arms * Patient denies associated symptoms of fever, chills, chest pain, shortness of breath nausea vomiting tingling or numbness. * Workup initiated in ER including CT abdomen and pelvis which showed colon diverticulosis without diverticulitis/hepatomegaly noted/bone windows showed degenerative disease of lumbar spine moderate spinal canal stenosis * CT cervical spine obtained was consistent with degenerative disease of cervical spine no acute cervical spine fracture noted * Blood work obtained in ER included CBC showed WBC 11.5 hemoglobin 14 platelet 269 * Serum chemistry showed sodium 134 potassium 3.2 BU and 13 creatinine 0.56 * Urinalysis showed minimal WBC, nitrite and leukocyte esterase negative * While in ER patient was given 2 L of fluid bolus, IV Toradol and IV morphine and admitted for further management * 03/01/2023: Patient seen and evaluated bedside, patient came back pain has improved patient able to ambulate with a walker motor strength is symmetrical and adequate, MRI cervical and lumbar spine ordered and pending REVIEW OF SYSTEMS: Back pain, bilateral lower extremity weakness CONSTITUTIONAL: No fever, no malaise, no fatigue. HEENT: No recent visual problems or hearing problems. Denied any sore throat. CARDIOVASCULAR: No chest pain, orthopnea, PND, no palpitations, no syncope. PULMONARY: No shortness of breath, no cough, no hemoptysis. GASTROINTESTINAL: No diarrhea, no nausea, no vomiting, no abdominal pain. NEUROLOGICAL: No headaches, no weakness, no numbness. HEMATOLOGICAL: Denies any bleeding or petechiae. GENITOURINARY: Denies any burning micturition, frequency, or urgency. MUSCULOSKELETAL/RHEUMATOLOGICAL: Denies any joint pain, swelling, or any muscle pain. ENDOCRINE: Denies any polyuria or polydipsia. PHYSICAL EXAMINATION: See vitals below GENERAL: The patient is alert and oriented x 3, not in any acute distress. Well developed, well nourished. HEENT: Pupils are round and equally reacting to light. EOMI. PULMONARY: Chest is clear to auscultation, no wheezing or crackles. ABDOMEN: Soft, nontender, nondistended, normoactive bowel sounds. No palpable organomegaly. MUSCULOSKELETAL: No joint swelling or deformity. EXTREMITIES: No cyanosis, clubbing, or pedal edema. NEUROLOGICAL: Gross neurological examination did not reveal any focal deficits. Strength is 4 x 5 bilateral upper and lower extremity Generalized global we akness Objective - Vital Signs Vital signs: Vital Signs Temp 98.3 F 03/01/23 07:00 Pulse 65 03/01/23 07:00 Resp 15 03/01/23 07:00 BP 126/65 03/01/23 07:00 Pulse Ox 99 03/01/23 07:00 FiO2 Intake & Output 02/28/23 03/01/23 03/01/23 18:59 06:59 18:59 Intake Total 564 Output Total 300 Balance 264 Intake: Oral 564 Output: Urine 300 Other: Voiding Method Toilet Toilet # Voids 150 5 - Labs CBC & Chem 7: 03/01/23 06:00 03/01/23 06:00 Labs: Abnormal Lab Results - Last 24 Hours (Table) 03/01/23 03/01/23 Range/Units 06:00 06:00 RBC 4.08 L (4.10-5.20) X 10*6/uL Hgb 11.7 L (12.0-15.0) g/dL Hct 35.9 L (37.2-46.3) % MPV 12.3 H (9.5-12.2) FL Sodium 134 L (135-145) mmol/L Assessment and Plan Assessment: Assessment and plan 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 with acute back pain Electrolyte Abnormality hyponatremia/hypokalemia Hypertension Hypothyroid Dyslipidemia Gastroesophageal reflux disease * In regards to degenerative disease of spine/back pain MRI cervical and lumbar spine ordered >> appreciate input from orthospine * In regards to hyponatremia, continue to monitor sodium levels potassium replaced * In regards to hypertension, continue metoprolol and hydrochlorothiazide, monitor for hypotension * In regards to hypothyroid continue Synthyroid * Physical therapy occupational therapy consulted * CODE STATUS is full code Time with Patient: Less than 30
[2023-03-01] MEDS: PANTOPRAZOLE 40 MG TABLET PO SCH (13:51)
[2023-03-01] MEDS: LIDOCAINE 5% PATCH TOPICAL SCH ×2 (14:57→15:07)
[2023-03-01] MEDS: hydroCHLOROthiazide 25 MG TAB PO SCH (14:58)
[2023-03-01] MEDS: FENOFIBRATE 160 MG TAB PO SCH (14:59)
[2023-03-01] MEDS: METOPROLOL TARTRATE 50 MG TAB PO SCH (14:59)
[2023-03-01] MEDS: amLODIPine 5 MG TAB PO SCH (14:59)
[2023-03-02] MEDS: LEVOTHYROXINE 75 MCG TAB PO SCH (06:42)
[2023-03-02] MEDS: traMADol 50 MG TAB PO PRN (06:47)
[2023-03-02] MEDS: METOPROLOL TARTRATE 50 MG TAB PO SCH (08:37)
[2023-03-02] MEDS: methocarbamoL 500 MG TAB PO SCH ×3 (08:37→20:00)
[2023-03-02] MEDS: ATORVASTATIN 10 MG TAB PO SCH (08:37)
[2023-03-02] MEDS: PANTOPRAZOLE 40 MG TABLET PO SCH (08:37)
[2023-03-02] MEDS: FENOFIBRATE 160 MG TAB PO SCH (08:37)
[2023-03-02] MEDS: amLODIPine 5 MG TAB PO SCH (08:37)
[2023-03-02] MEDS: LIDOCAINE 5% PATCH TOPICAL SCH ×2 (08:38→10:13)
[2023-03-02] MEDS: ENOXAPARIN 40 MG/0.4 ML SYRINGE SQ SCH (08:38)
[2023-03-02] MEDS: hydroCHLOROthiazide 25 MG TAB PO SCH (08:38)
[2023-03-02 08:41] LABS: HGB 11.7 g/dL (12.0-15.0); MCH 28.8 pg (27.0-32.0); MCHC 32.5 g/dL (32.0-37.0); MCV 88.7 FL (80.0-97.0); Mean Platelet Volume 12.3 FL (9.5-12.2); NRBC Per 100 WBC 0 X 10*3/uL (0.00-0.01); Platelet Count 301 X 10*3/uL (140-440); RBC 4.06 X 10*6/uL (4.10-5.20); RDW 12.7 % (11.5-14.5); WBC 5.99 X 10*3/uL (4.50-10.00)
[2023-03-02 08:58] LABS: Blood Urea Nitrogen 8.7 mg/dL (9.0-27.0); Calcium 9.4 mg/dL (8.7-10.3); Carbon Dioxide 29.4 mmol/L (21.6-31.8); Chloride 100 mmol/L (96-109); Glucose 96 mg/dL (70-110); Potassium 3.8 mmol/L (3.5-5.5); Sodium 138 mmol/L (135-145)
[2023-03-02] MEDS: SODIUM CHLORIDE 0.9% 1,000 ML IV SCH (10:14)
[2023-03-02] MEDS: polyethylene glycoL 3350 17 GM POWD.PACK PO SCH (10:44)
--- NOTE | 2023-03-02 14:16 | P.PN ---
Subjective Progress Note Date: 03/02/23 Left lumbar spine/left paraspinal and neck pain Evaluated by orthopedic-spine with recommendations noted and appreciated. MRI C-spine/lspine scheduled for today. Reports significant spine with spasming a long the left lumbar spine. Rating pain as 7 out of 10 on tramadol. States no bowel movement 5 days. Denies chest pain, palpitations or shortness of breath. Denies cough. Using BiPAP at night. Denies chest pain, palpitations or shortness of breath. Objective - Vital Signs Vital signs: Vital Signs Temp 97.8 F 03/02/23 07:00 Pulse 74 03/02/23 08:00 Resp 16 03/02/23 08:00 BP 126/64 03/02/23 07:00 Pulse Ox 97 03/02/23 09:00 FiO2 Intake & Output 03/01/23 03/02/23 03/02/23 18:59 06:59 18:59 Intake Total 118 118 Balance 118 118 Intake: Oral 118 118 Other: Voiding Method Toilet Toilet Toilet # Voids 3 1 - Exam PHYSICAL EXAM: VITAL SIGNS: [As above ] GENERAL: Alert and oriented 3,Standing up next to bedside, spasming HEENT: Normocephalic ,Conjunctivae normal. eyes normal. NECK: Supple, No JVD. CARDIOVASCULAR: S1, S2 regular. No murmur RESPIRATION: Unlabored equal air entry ,Breath sounds diminished in the bases. No rhonchi or crackles. ABDOMEN: Soft, nontender . No guarding. no masses palpable. No ascites, No hepatosplenomegaly.Bowel sounds heard.Left paraspinal muscles tenderness. LEGS: No edema. no swelling PSYCHIATRY: Alert and oriented X3, mood and affect normal. NERVOUS SYSTEM: Cranial N 2-12 grossly normal. Moves all 4 limbs.No focal deficits. Strength and sensation grossly intact.. Skin: Warm and dry, no rash. - Labs CBC & Chem 7: 03/02/23 06:14 03/02/23 06:14 Labs: Abnormal Lab Results - Last 24 Hours (Table) 03/02/23 03/02/23 Range/Units 06:14 06:14 RBC 4.06 L (4.10-5.20) X 10*6/uL Hgb 11.7 L (12.0-15.0) g/dL Hct 36.0 L (37.2-46.3) % MPV 12.3 H (9.5-12.2) FL BUN 8.7 L (9.0-27.0) mg/dL Assessment and Plan Assessment: Acute back pain, degenerative disc disease of cervical and lumbar spine, possible nerve root impingement,MRI pending. Hyponatremia Hypokalemia Gastroesophageal reflux disease Hypertension Hyperlipidemia Constipation Plan: Continue on current medication regime ,monitoring and symptomatic treatment. Cervical and lumbar spine MRI pending. Follow closely with orthopedic spine. MiraLAX ordered. DC pending MRI results, final DC recommendations and clearance from orthopedic-spine. The impression and plan of care has been dictated as directed. : I performed a history and examination of this patient, discussed the same with the dictator. I agree with the dictator's note ,documented as a scribe. Any ad ditional findings or plans will be noted.
--- NOTE | 2023-03-02 16:51 | MR ---
EXAMINATION TYPE: MR cspine/lspine wo/w con DATE OF EXAM: 03/02/2023 1:33 PM CLINICAL INDICATION:Female, 77 years old with history of Lumbar radiculopathy with weakness; PHH, Rad iculopathy with weakness COMPARISON: CT 02/28/2023. TECHNIQUE: Multi planar, multi sequence imaging was performed utilizing: T1-weighted, T2-weighted, a nd turbo inversion recovery imaging of the cervical and lumbar spine. MR contrast: IV Contrast: 9 cc Gadavist, None. FINDINGS: CERVICAL: Alignment: The cervical vertebral bodies have preserved heights. Alignment is within normal limits gi sterling patient positioning. Bones: Signal mild reactive bony edema on inversion recovery sequences at T1-T2 anterior adjoining en dplates. Scattered osteophyte formation and disc osteophyte complex's. No abnormal postcontrast enhan cement. Cord: The spinal cord is unremarkable with regards to their signal intensity and morphology. No abnor mal postcontrast enhancement. Discs: Multilevel disc desiccation is present. C2-C3: No significant disc pathology. The spinal canal is patent. Bilateral facet and uncovertebral joint arthropathy are present with mild bilateral neural foraminal stenosis. C3-C4: A disc osteophyte complex is present which minimally narrows the ventral subarachnoid space. Bilateral facet and uncovertebral joint arthropathy are present with mild left neural foraminal sten osis. The right neural foramen is patent. C4-C5: A disc osteophyte complex is present with mild spinal canal stenosis. Bilateral facet and unc overtebral joint arthropathy are present with moderate left and mild right neural foraminal stenosis. C5-C6: A disc osteophyte complex is present with moderate spinal canal stenosis. Bilateral facet and uncovertebral joint arthropathy are present with moderate to severe bilateral neural foraminal steno sis. C6-C7: No significant disc pathology. The spinal canal is patent. Bilateral facet and uncovertebral joint arthropathy are present with moderate bilateral neural foraminal stenosis. C7-T1: No significant disc pathology. The spinal canal is patent. No neural foraminal stenosis. Other: None. LUMBAR: Alignment: The lumbar vertebral bodies have preserved heights with grade 1 anterolisthesis of L4 on L 5. Cord: The conus medullaris and the distal spinal cord appear unremarkable with regards to their signa l intensity and morphology. No abnormal postcontrast enhancement. Bones/Discs: Mild degeneration changes throughout the spine with osteophyte formation and facet joint arthropathy. Multilevel disc desiccation is present. T12-L1: No evidence of significant spinal canal stenosis or neural foraminal stenosis. L1-L2: No evidence of significant spinal canal stenosis or neural foraminal stenosis. L2-L3: No evidence of significant spinal canal stenosis or neural foraminal stenosis. L3-L4: Disc bulge and facet joint arthropathy result in mild to moderate spinal canal and moderate bi lateral neural foraminal stenosis. L4-L5: Disc uncovering from grade 1 anterolisthesis and facet joint arthropathy with moderate to arabella re spinal canal stenosis and moderate bilateral neural foraminal stenosis. L5-S1: The disc is rounded posterior morphology without significant spinal canal stenosis. Facet join t arthropathy with moderate left and mild right neural foraminal stenosis. No significant spinal canal or neural foraminal stenosis in the remainder of the visualized levels. Other findings: None. IMPRESSION: C-spine: 1. Moderate C5-C6 spinal canal stenosis secondary to satisfactory limits. 2. Disc degeneration changes worse at left C4-C5 with moderate and moderate to severe bilateral C5-C 6 3. No abnormal postcontrast enhancement. L-spine: 1. Grade 1 anterolisthesis of L4 and L5 with moderate to severe spinal calcinosis. 2. Disc degeneration changes worse at L5 5 S1 with moderate left, L4-L5 moderate bilateral and L3-L4 with moderate bilateral neural foraminal stenosis. 3. No abnormal postcontrast enhancement.
--- NOTE | 2023-03-02 17:58 | P.PN ---
Subjective Progress Note Date: 03/02/23 Principal diagnosis: Low back pain, neck pain Patient was examined today at bedside, she was visualized ambulating in the room with no assistive devices. She feels that the symptoms are a little bit improved with regards to the spasming and discomfort on the left flank and neck region. She did have the MRI both cervical and lumbar spine. She continues to demonstrate no acute neuropathic signs. She denies headaches, lightheadedness, chest pain or shortness of breath Objective - Vital Signs Vital signs: Vital Signs Temp 98.1 F 03/02/23 14:38 Pulse 78 03/02/23 14:38 Resp 16 03/02/23 14:38 BP 128/59 03/02/23 14:38 Pulse Ox 95 03/02/23 14:38 FiO2 Intake & Output 03/01/23 03/02/23 03/02/23 18:59 06:59 18:59 Intake Total 118 408 Balance 118 408 Intake: Oral 118 408 Other: Voiding Method Toilet Toilet Toilet # Voids 3 1 3 - Exam Gen: AOx3, NAD VSS stable at this time Integument: No open lesions are visualized throughout the cervical, thoracic or lumbar spine. Well-healed incision over the anterior aspect of the right knee Palpation: Mild tenderness with palpation noted in the paraspinal region of the cervical and upper thoracic spine. No point tenderness appreciated with palpation to the bilateral upper and lower extremities ROM: Full range of motion in all major muscle groups of the bilateral upper and lower extremity is, no focal deficits appreciated Sensory Exam: Senory exam to light touch is intact C5-T1 Senosry exam to light touch is intact L2-S1 Motor: 5/5 strength appreciated in bilateral upper extremities with shoulder elevation, shoulder abduction, wrist extension, wrist flexion, elbow extension, elbow flexion, lamp assembler 5/5 strength appreciated in the bilateral lower extremities with hip flexion, knee extension, knee flexion, plantar flexion, dorsiflexion, EHL, FHL Reflexes: 2/4 in all UE and LE Negative Stefanie's bilaterally Negative Babinski bilateral Negative clonus bilaterally Special Test: Negative straight leg raise bilaterally - Labs CBC & Chem 7: 03/02/23 06:14 03/02/23 06:14 Labs: Abnormal Lab Results - Last 24 Hours (Table) 03/02/23 03/02/23 Range/Units 06:14 06:14 RBC 4.06 L (4.10-5.20) X 10*6/uL Hgb 11.7 L (12.0-15.0) g/dL Hct 36.0 L (37.2-46.3) % MPV 12.3 H (9.5-12.2) FL BUN 8.7 L (9.0-27.0) mg/dL Assessment and Plan Assessment: Neck pain Low-back pain Multilevel cervical spondylosis with varying degrees of neural foraminal and central canal stenosis C5-C6 central canal stenosis L4-L5 Grade 1 spondylolisthesis central canal stenosis Previous lumbar surgery Other medical comorbidities Plan: Will review MRI findings with my attending Dr. Ruiz, at this time recommending continuation of conservative measures. PT/OT, weight-bear as tolerated DVT prophylaxis per primary medical service Encourage patient to be out of bed for all meals Other medical practitioners recommendations appreciated Further recommendations to follow Time with Patient: Less than 30
[2023-03-03] MEDS: methocarbamoL 500 MG TAB PO SCH ×2 (00:01→08:31)
[2023-03-03] MEDS: SODIUM CHLORIDE 0.9% 1,000 ML IV SCH (05:49)
[2023-03-03] MEDS: LEVOTHYROXINE 75 MCG TAB PO SCH (06:13)
--- NOTE | 2023-03-03 07:49 | P.PN ---
Progress Note - Text Progress Note Date: 03/03/23 IMAGING REVIEW: MRI C AND L SPINE W/O: Images reviewed Cervical spondylosis noted from C4-7 with moderate to severe stenosis due to HNP and ligamental hypertrophy. No myelomalacia noted. No fracture, instability or lesions noted. Lumbar spine shows Grade I spondylolisthesis of L4-5 as well as L3-4. There is severe stenosis at both of these levels with ligamental hypertrophy, instability, foraminal stenosis, central stenosis, facet hypertrophy, pars elongation. With mild symptoms pt can be treated conservatively but should follow close in the office for discussion. Pt would need surgery on low back should their sx worsen.
[2023-03-03 07:56] VITALS: BP 150/68; PULSE 74; RESP 15; TEMP 98
[2023-03-03] MEDS: LIDOCAINE 5% PATCH TOPICAL SCH ×2 (08:31→08:40)
[2023-03-03] MEDS: PANTOPRAZOLE 40 MG TABLET PO SCH (08:31)
[2023-03-03] MEDS: polyethylene glycoL 3350 17 GM POWD.PACK PO SCH (08:31)
[2023-03-03] MEDS: METOPROLOL TARTRATE 50 MG TAB PO SCH (08:31)
[2023-03-03] MEDS: ATORVASTATIN 10 MG TAB PO SCH (08:31)
[2023-03-03] MEDS: amLODIPine 5 MG TAB PO SCH (08:31)
[2023-03-03] MEDS: hydroCHLOROthiazide 25 MG TAB PO SCH (08:31)
[2023-03-03] MEDS: FENOFIBRATE 160 MG TAB PO SCH (08:31)
[2023-03-03] MEDS: ENOXAPARIN 40 MG/0.4 ML SYRINGE SQ SCH (08:32)
[2023-03-03] MEDS: traMADol 50 MG TAB PO PRN (08:46)
[2023-03-03] MEDS ORDERED: polyethylene glycoL 3350 17 GM POWD.PACK PO SCH (09:45)
--- NOTE | 2023-03-03 14:22 | P.DS ---
Providers Date of admission: 02/28/23 04:00 Expected date of discharge: 03/03/23 Attending physician: Andres Perez MD Consults: 02/28/23 11:12 Consult Physician Routine Consulting Provider: Grey Ruiz Consult Reason/Comments: cervical lumbar spine with acute back pain Do you want consulting provider notified?: Already Contacted Primary care physician: Mckenzie Perez Hospital Course: Final Diagnoses: Back and neck pain, degenerative disc disease of cervical and lumbar spine, Cervical/lumbar spine MRI completed reviewed by orthopedic surgery -reporting: Cervical spondylosis noted from C4-7 with moderate to severe stenosis due to HNP and ligamental hypertrophy. No myelomalacia noted. No fracture, instability or lesions noted,Lumbar spine - Grade I spondylolisthesis of L4-5 as well as L3-4, severe stenosis at both of these levels with ligamental hypertrophy, instability, foraminal stenosis, central stenosis, facet hypertrophy, pars elongation. Conservative management with further options to be discussed outpatient in clinic with orthopedic surgery. Hyponatremia Hypokalemia Gastroesophageal reflux disease Hypertension Hyperlipidemia Constipation Hospital course: Left lumbar spine/left paraspinal and neck pain Evaluated by orthopedic-spine with recommendations noted and appreciated. MRI C-spine/lspine scheduled for today. Reports significant spine with spasming along the left lumbar spine. Rating pain as 7 out of 10 on tramadol. States no bowel movement 5 days. Denies chest pain, palpitations or shortness of breath. Denies cough. Using BiPAP at night. Denies chest pain, palpitations or shortness of breath. Cervical/lumbar spine MRI completed reviewed by orthopedic surgery ,reporting multilevel cervical spondylosis with fear in degrees of neural foraminal and central canal stenosis, C5-C6 central canal stenosis, L4-L5 grade 1 spondylolisthesis central canal stenosis; recommending conservative management at this time with further outpatient follow-up. Denies lightheadedness dizziness or focal deficits. Denies headache. Denies tingling/burning of fingertips or toes. Denies chest pain, palpitations or shortness of breath. Reports improvement in pain/spasms. Cleared by orthopedic surgery. Patient will be discharged home today in a stable condition with guarded prognosis. The impression and plan of care has been dictated as directed. : I performed a history and examination of this patient, discussed the same with the dictator. I agree with the dictator's note ,documented as a scribe. Any additional findings or plans will be noted. Patient Condition at Discharge: Stable Plan - Discharge Summary New Discharge Prescriptions: New Lidocaine 5% Patch [Lidoderm 5% Patch] 1 patch TOPICAL DAILY #30 patch tiZANidine HCL 4 mg PO TID PRN #20 tab PRN Reason: Spasms polyethylene glycoL 3350 [Miralax] 17 gm PO BID packet predniSONE 10 mg PO DIRECTED #30 tab Continue Cetirizine HCl [Zyrtec] 10 mg PO DAILY PRN PRN Reason: ALLERGIES amLODIPine/ATORVASTATIN [amLODIPine/ATORVASTATIN 5-10 MG] 1 tab PO DAILY Levothyroxine Sodium [Synthroid] 150 mcg PO DAILY Fenofibrate Nanocrystallized [Tricor] 145 mg PO DAILY Metoprolol/Hydrochlorothiazide [Lopressor Hct 50-25 mg Tab] 1 tab PO DAILY Lansoprazole 30 mg PO DAILY Gabapentin [Neurontin] 300 mg PO HS PRN PRN Reason: Pain Discontinued Lactulose 20 gm PO DAILY PRN PRN Reason: Constipation Discharge Medication List Cetirizine HCl [Zyrtec] 10 mg PO DAILY PRN 11/09/14 [History] Fenofibrate Nanocrystallized [Tricor] 145 mg PO DAILY 11/09/14 [History] Levothyroxine Sodium [Synthroid] 150 mcg PO DAILY 11/09/14 [History] amLODIPine/ATORVASTATIN [amLODIPine/ATORVASTATIN 5-10 MG] 1 tab PO DAILY 11/09/14 [History] Gabapentin [Neurontin] 300 mg PO HS PRN 02/28/23 [History] Lansoprazole 30 mg PO DAILY 02/28/23 [History] Metoprolol/Hydrochlorothiazide [Lopressor Hct 50-25 mg Tab] 1 tab PO DAILY 02/28/23 [History] Lidocaine 5% Patch [Lidoderm 5% Patch] 1 patch TOPICAL DAILY #30 patch 03/03/23 [Rx] polyethylene glycoL 3350 [Miralax] 17 gm PO BID packet 03/03/23 [Rx] predniSONE 10 mg PO DIRECTED #30 tab 03/03/23 [Rx] tiZANidine HCL 4 mg PO TID PRN #20 tab 03/03/23 [Rx] Follow up Appointment(s)/Referral(s): Mckenzie Perez DO [Primary Care Provider] - 3 Days Grey Ruiz DO [Doctor of Osteopathic Medicine] - 3 Weeks Discharge Disposition: HOME SELF-CARE
== END 2023-03-03 13:44 | disposition home or self-care (01) ==
LOC: EC 20:14 → 6NMEDSUR 02-28 04:00
PROVIDERS: ADMIT Family Medicine; ATTEND Family Medicine
DX: M50.221 Other cervical disc displacement at C4-C5 level (principal); M48.02 Spinal stenosis, cervical region; M48.061 Spinal stenosis, lumbar region without neurogenic claudication; M47.812 Spondylosis without myelopathy or radiculopathy, cervical region; M43.16 Spondylolisthesis, lumbar region; M50.321 Other cervical disc degeneration at C4-C5 level; M51.36 Other intervertebral disc degeneration, lumbar region; Z98.1 Arthrodesis status; K57.90 Diverticulosis of intestine, part unspecified, without perforation or abscess without bleeding; E87.1 Hypo-osmolality and hyponatremia; E87.6 Hypokalemia; I10 Essential (primary) hypertension; E03.9 Hypothyroidism, unspecified; K21.9 Gastro-esophageal reflux disease without esophagitis; G47.30 Sleep apnea, unspecified; K76.0 Fatty (change of) liver, not elsewhere classified; M50.30 Other cervical disc degeneration, unspecified cervical region; K44.9 Diaphragmatic hernia without obstruction or gangrene; E78.5 Hyperlipidemia, unspecified; K59.00 Constipation, unspecified; Z79.890 Hormone replacement therapy; Z79.899 Other long term (current) drug therapy; Z88.5 Allergy status to narcotic agent; Z88.2 Allergy status to sulfonamides; Z88.8 Allergy status to other drugs, medicaments and biological substances; Z90.49 Acquired absence of other specified parts of digestive tract; Z96.641 Presence of right artificial hip joint; Z90.710 Acquired absence of both cervix and uterus; Z96.651 Presence of right artificial knee joint; Z82.49 Family history of ischemic heart disease and other diseases of the circulatory system; Z80.3 Family history of malignant neoplasm of breast
CPT/HCPCS: 96376; 96361 ×4; 96365; 96366; 96372 ×3; 96375 ×2; 99285; 36415; 97161; 97165; 80053; 80048 ×2; 82550 ×2; 83605; 85025 ×2; 85027; 81001; 72125; 74177; 72156; 72158; G0378 ×4; J2270 ×2; J1650 ×3; J3480; J1885; Q9967; A9585

== ENCOUNTER → 2023-05-29 | Outpatient (CLI) | payer MEDICARE ==
--- NOTE | 2023-05-29 13:48 | CT ---
Exam: CT Chest without contrast. Date: 03/28/2024. Comparison: 10/22/2022. History: Abnormal finding of lung villalpando. Technique: CT examination of the chest was performed without contrast. Coronal and sagittal reformats were performed. CT dose lowering techniques were used, to include: automated exposure control, adjus tment for patient size, and/or use of iterative reconstruction. FINDINGS: Mediastinum and Lisbet: There is no axillary, mediastinal or hilar lymphadenopathy. Pleural and Pericardial spaces: There are no pleural or pericardial effusions. Upper Abdomen: There is a large sliding hiatal hernia. The visualized upper abdomen otherwise appears unremarkable. Cardiovascular: There is moderate vascular calcification throughout the thoracic aorta without eviden ce of aneurysmal dilation. Mild patchy coronary artery calcifications are seen. Lung Parenchyma and Airways: There are calcified granulomas seen within the right lung. There are a f ew linear bands of opacities otherwise seen throughout the lungs bilaterally likely atelectasis or sc arring. There is no focal area of consolidation. Bones: No fracture or aggressive osseous lesion. IMPRESSION: 1. No acute abnormality in the chest. 2. Chronic changes as above which are minimal and unchanged. 3. Mild coronary calcifications. 4. Large hiatal hernia.
== END | disposition home or self-care (01) ==
LOC: RADCTMAIN 13:06
PROVIDERS: ATTEND Internal Medicine Pulmonary Disease
DX: K44.9 Diaphragmatic hernia without obstruction or gangrene (principal); I25.10 Atherosclerotic heart disease of native coronary artery without angina pectoris; R91.8 Other nonspecific abnormal finding of lung field; G47.33 Obstructive sleep apnea (adult) (pediatric); E66.9 Obesity, unspecified; K21.9 Gastro-esophageal reflux disease without esophagitis; C50.919 Malignant neoplasm of unspecified site of unspecified female breast; D64.9 Anemia, unspecified; J45.909 Unspecified asthma, uncomplicated
CPT/HCPCS: 71250

== ENCOUNTER → 2024-10-07 | Outpatient (CLI) | payer MEDICARE ==
--- NOTE | 2024-10-09 19:28 | CT ---
EXAMINATION TYPE: CT chest wo con DATE OF EXAM: 10/07/2024 12:16 PM COMPARISON: 05/29/2023 CLINICAL INDICATION: Female, 78 years old with history of R91.8 OTHER NONSPECIFIC ABNORMAL FINDING OF LUNG F, Lung nodules, hx breast ca TECHNIQUE: Axial images were obtained at 5 mm thick sections. Reconstructed images are reviewed on [employer] computer in the coronal plane. Contrast used: mL of , (none if empty) Oral contrast used: (none if empty) CT DLP: 423.50 mGycm, Automated exposure control for dose reduction was used. FINDINGS: Portion of the thyroid visualized is normal. There is a calcification anterior right upper lung field measuring 0.5 cm present previously. There i s a 0.5 cm nodule anterior left upper lung field, series 4 image 29. Tiny nodule may be at the cardio phrenic angle along the mediastinal border, series 4 image 29. There is a 0.6 cm pleural-based nodule anterior left lung series 4 image 32. There is a 0.3 cm nodule left lateral midlung. Series 4 image 36. There is a 0.4 cm nodule posterior right lung base. Series 4 image 45 Additional tiny right lung densities are present, series 4 image 34, series 4 image 35. There is an infiltrate along the lateral anterior left lung. Series 4 image 41. Atelectasis and pneum onia can be considered. This was present previously scarring and pulmonary fibrosis could be consider ed within the differential. This area has enlarged from prior study currently measuring 3.2 x 1.3 cm. Previous measurement approximately 3.1 x 1.1 cm. No enlarged mediastinal or hilar adenopathy is evident. The ascending aorta diameter at the level o f the main pulmonary artery is 3.5 cm. The main pulmonary artery diameter at the bifurcation is 2.6 cm. Mild coronary artery calcifications present. Limited CT sections are obtained through the upper abdomen. There is a moderate size hiatal hernia pr esent. Prior cholecystectomy is evident. IMPRESSION: 1. Enlarging irregular density anterior lateral right lung base. Consider additional workup. 2. Scattered small nodules and tiny densities discussed above. These appears similar in comparison. [facility], , 10/09/2024 7:25 PM
== END | disposition home or self-care (01) ==
LOC: RADCTMAIN 11:45
PROVIDERS: ATTEND Internal Medicine Pulmonary Disease
DX: R91.8 Other nonspecific abnormal finding of lung field (principal); J98.4 Other disorders of lung; Z90.49 Acquired absence of other specified parts of digestive tract
CPT/HCPCS: 71250